=== PATIENT | female | born 1975 | race African-American/Black ===

== ENCOUNTER 2024-04-22 11:54 | Emergency (ER) | payer MEDICAID ==
[~2024-04-22] VITALS: Ht 165.1 cm; Wt 69.0 kg
[2024-04-22 11:57] VITALS: O2SAT 100
[2024-04-22 12:54] LABS: HEMATOCRIT. 31.5 % (36.0-48.0); HEMOGLOBIN. 9.5 g/dL (12.0-16.0); MEAN CORPUSCULAR HEMOGLOBIN 19.1 pg (28.0-32.0); MEAN CORPUSCULAR HGB CONC 30.2 g/dL (31.0-37.0); MEAN CORPUSCULAR VOLUME 63.1 fL (81.0-99.0); MEAN PLATELET VOLUME 8.2 fl (7.4-10.4); PLATELET 491 x1000/uL (130-400); RED BLOOD CELL COUNT 4.99 mill/uL (4.2-5.4); RED CELL DISTRIBUTION WIDTH 24.5 % (11.6-14.6); WHITE BLOOD COUNT 6.1 x1000/uL (4.5-11.0)
[2024-04-22 12:58] LABS: DIFFERENTIAL COMMENT 1
[2024-04-22 13:02] LABS: INR 0.9; PROTHROMBIN TIME 10.6 sec (9.6-11.0)
[2024-04-22 13:07] LABS: CHLORIDE 104 mEq/L (98-107); POTASSIUM 3.5 mEq/L (3.5-5.1); SODIUM 138 mEq/L (136-145)
[2024-04-22 13:08] LABS: CALCIUM 9.7 mg/dL (8.7-10.4); CARBON DIOXIDE 29 mEq/L (21-32)
[2024-04-22 13:13] LABS: CREATININE 0.6 mg/dL (0.6-1.0); GLUCOSE 91 mg/dL (70-105); UREA NITROGEN BLOOD 9 mg/dL (9-23)
[2024-04-22] MEDS ORDERED: AMOX1TAB16 MT (13:23)
[2024-04-22] MEDS ORDERED: OXYM30SP26 BOTHNSTRLS (13:23)
[2024-04-22 13:38] LABS: ANISOCYTOSIS 2+; HYPOCHROMASIA 2+; PLATELET ESTIMATE INCREASED
[2024-04-22 13:39] LABS: MICROCYTOSIS 3+
[2024-04-22 13:40] LABS: TEAR DROP CELLS FEW
[2024-04-22] MEDS: OXYMETAZOLINE HCL NASAL SPRAY 15ML BOTHNSTRLS PRN (13:51)
[2024-04-22 13:53] VITALS: BP 124/71; PULSE 81; RESP 16; TEMP 37.00296; O2SAT 100
== END 2024-04-22 13:53 | disposition home or self-care (01) ==
LOC: ER 12:05
DX: R04.0 Epistaxis (principal); J01.90 Acute sinusitis, unspecified; J45.909 Unspecified asthma, uncomplicated
CPT/HCPCS: 36415; 80048; 85025; 99283

== ENCOUNTER 2024-09-27 13:51 | Emergency (ER) | payer MEDICAID ==
[~2024-09-27] VITALS: Ht 170.2 cm; Wt 80.0 kg
[~2024-09-27 13:51] MED LIST: AMOX1TAB16 MT; OXYM30SP26 BOTHNSTRLS
[2024-09-27 13:59] VITALS: TEMP 36.9; O2SAT 100
[2024-09-27 14:10] VITALS: BP 123/84; PULSE 97; RESP 24; O2SAT 99
== END 2024-09-27 16:21 | disposition left against medical advice (07) ==
LOC: ER 13:51 → CMPBEDREQ 09-28 08:03
DX: R00.2 Palpitations (principal); J45.909 Unspecified asthma, uncomplicated
CPT/HCPCS: 71045; 93005; 99283